=== PATIENT | male | born 1950 | race Caucasian/White ===

== ENCOUNTER 2023-10-01 15:53 | Inpatient (IN) | payer MEDICARE ==
[~2023-10-01] VITALS: Ht 180.3 cm; Wt 104.5 kg
[2023-10-01 16:30] LABS: BASOPHILS % (AUTO) 0.7 % (0-1); EOSINOPHILS # (AUTO) 0.2 X10'3 (0-0.9); EOSINOPHILS % (AUTO) 2.5 % (0-6); HEMATOCRIT 47.4 % (42.0-52.0); HEMOGLOBIN 16.2 g/dl (14.0-17.9); LYMPHOCYTES # (AUTO) 1.3 X10'3 (1.1-4.8); LYMPHOCYTES % (AUTO) 18.3 % (21-51); MEAN CORPUSCULAR HEMOGLOBIN 33.8 PG (27.0-31.0); MEAN CORPUSCULAR HGB CONC 34.1 g/dL (33.0-36.5); MEAN CORPUSCULAR VOLUME 99.1 FL (78-98); MEAN PLATELET VOLUME 7.3 FL (7.4-10.4); MONOCYTES # (AUTO) 0.8 X10'3 (0-0.9); MONOCYTES % (AUTO) 11.5 % (2-12); NEUTROPHILS # (AUTO) 4.7 X10'3 (1.8-7.7); PLATELET COUNT 269 X10'3 (140-440); RED BLOOD COUNT 4.78 X10'6 (4.70-6.10); WHITE BLOOD COUNT 7.1 X10'3 (4.5-11.0)
[2023-10-01 16:35] LABS: APTT 25 SECONDS (22-32); PROTHROMBIN TIME 10.7 SECONDS (9.0-12.0)
[2023-10-01 16:38] LABS: ALANINE AMINOTRANSFERASE 36 U/L (12-78); ALBUMIN 4.4 G/DL (3.4-5.0); ALBUMIN/GLOBULIN RATIO 1.2 (1.1-1.5); ALKALINE PHOSPHATASE 94 IU/L (46-116); ANION GAP 9 (8-16); ASPARTATE AMINO TRANSFERASE 23 U/L (10-37); BILIRUBIN,TOTAL 1.2 MG/DL (0.1-1.0); BLOOD UREA NITROGEN 12 MG/DL (7-18); BUN/CREATININE RATIO 11.9 (10.0-20.0); CALCIUM 9.2 MG/DL (8.5-10.1); CHLORIDE 103 MMOL/L (99-107); CREATININE 1.01 MG/DL (0.60-1.10); GLUCOSE 133 MG/DL (70-104); POTASSIUM 3.5 MMOL/L (3.5-5.1); SODIUM 142 MMOL/L (135-145); TOTAL CARBON DIOXIDE 30.4 MMOL/L (24-32); eCRCL 70 ML/MIN; eGFR 73 ML/MIN
[2023-10-01] MEDS ORDERED: DIAZ5TAB23 PO (16:39)
[2023-10-01] MEDS ORDERED: FLO0.4C PO (16:39)
[2023-10-01] MEDS ORDERED: ATOR80TA PO (16:39)
[2023-10-01] MEDS ORDERED: DUTA0.5C40 PO (16:39)
[2023-10-01] MEDS ORDERED: ZOLP10TA PO (16:39)
[2023-10-01 16:45] LABS: MAGNESIUM 2.1 MG/DL (1.5-2.4); PRO BRAIN NATRIURETIC PEPTIDE < 30 PG/ML (0-125)
[2023-10-01] MEDS ORDERED: iohexol 350MG/ML 100ml bottle IV ONE (17:05)
[2023-10-01 17:22] LABS: D-DIMER 0.45 MG/L FEU (0-0.50)
[2023-10-01] MEDS: aspirin 81mg tab.chew PO ONE (17:25)
[2023-10-01] MEDS: normal saline 1000ml 1,000 ML IV ONE (17:27)
[2023-10-01] MEDS: normal saline 1000ML IV soln IVB ONE (17:28)
[2023-10-01] MEDS: enoxaparin 100mg/ml syringe SUBCUT ONE (18:00)
[2023-10-01] MEDS ORDERED: magnesium 4gm in 100ml NS 100 ML IV PRN (18:05)
[2023-10-01] MEDS ORDERED: acetaminophen 325mg tablet PO PRN ×2 (18:05)
[2023-10-01] MEDS ORDERED: ondansetron/PF 4mg/2ml inj IV PRN (18:05)
[2023-10-01] MEDS ORDERED: mag hydrox/Alum hydrox/simeth 30ml oral suspension PO PRN (18:05)
[2023-10-01] MEDS ORDERED: morphine 2 MG/ML inj. syringe IV PRN ×2 (18:05)
[2023-10-01] MEDS ORDERED: potassium Cl 40MEQ/1/2NS 520ml 520 ML IV PRN (18:05)
[2023-10-01] MEDS ORDERED: magnesium hydroxide 30ml (MOM) UD suspension PO PRN (18:05)
[2023-10-01] MEDS ORDERED: metoprolol tartrate 1mg/ml inj IV PRN (18:05)
[2023-10-01] MEDS ORDERED: potassium Cl 20 mEq SR tablet PO PRN (18:05)
[2023-10-01] MEDS ORDERED: magnesium Cl slow-release 64mg tablet PO PRN (18:05)
[2023-10-01] MEDS ORDERED: nitroGLYCERIN 0.4mg SUBLingual tab SL PRN (18:05)
[2023-10-01] MEDS ORDERED: aminophylline 250mg/10ml inj. IV PRN (18:05)
[2023-10-01] MEDS ORDERED: magnesium 2GM in 50ml NS 50 ML IV PRN (18:05)
[2023-10-01] MEDS ORDERED: ipratropium/albuterol 3ml nebule NEB PRN (18:20)
[2023-10-01] MEDS ORDERED: tamsulosin 0.4mg capsule PO PRN (18:20)
[2023-10-01] MEDS ORDERED: diazepam 5mg tablet PO PRN (18:20)
[2023-10-01 19:11] VITALS: PULSE 64; RESP 13; O2SAT 96
[2023-10-01] MEDS: K and/or MAG REPLACEMENT MC SCH (19:13)
[2023-10-01] MEDS: enoxaparin 40mg/0.4ml syringe SQ SCH (19:20)
[2023-10-01] MEDS: docusate sod 100mg capsule PO SCH (19:23)
[2023-10-01 22:48] LABS: BILIRUBIN,URINE NEGATIVE (Neg); CLARITY,URINE CLEAR (Clear); COLOR,URINE YELLOW (Yellow); GLUCOSE, URINE NEGATIVE (Neg); KETONES,URINE 15 mg/dl (Neg); LEUKOCYTE ESTERASE ,URINE NEGATIVE (Neg); NITRITES, URINE NEGATIVE (Neg); OCCULT BLOOD,URINE NEGATIVE (Neg); PROTEIN,URINE TRACE mg/dl (Neg); UROBILINOGEN,URINE 0.2 E.U/dL (0.2-1.0)
[2023-10-01 22:55] LABS: UA COLLECTION TYPE CLN CATCH MIDSTREAM
[2023-10-01 22:56] LABS: BACTERIA,URINE FEW /HPF (Neg); RBC,URINE NONE SEEN /HPF (0-2); SQUAMOUS EPITHELIAL CELL,UR MODERATE /LPF (FEW); WBC,URINE 0-4 /HPF (0-4)
[2023-10-01 23:00] VITALS: BP 140/83; PULSE 63; RESP 16; TEMP 97.9; O2SAT 96
[2023-10-01] MEDS: zolpidem 5mg tablet PO PRN (23:00)
[2023-10-01 23:01] LABS: URINE AMPHETAMINE SCREEN NEGATIVE (Neg); URINE BARBITUATE SCREEN NEGATIVE (Neg); URINE BENZODIAZEPINES SCREEN POSITIVE (Neg); URINE CANNABINOID SCREEN NEGATIVE (Neg); URINE COCAINE SCREEN NEGATIVE (Neg); URINE METHADONE SCREEN NEGATIVE (Neg); URINE PHENCYCLIDINE SCREEN NEGATIVE (Neg)
[2023-10-02] VITALS (19 sets, daily range): BP systolic 109–162; BP diastolic 61–85; PULSE 55–88; RESP 12–20; TEMP 97–98.7; O2SAT 93–98
[2023-10-02 06:02] LABS: HEMOGLOBIN A1C 5.6 % (4.5-6.2)
[2023-10-02 06:08] LABS: BASOPHILS % (AUTO) 0.6 % (0-1); EOSINOPHILS # (AUTO) 0.2 X10'3 (0-0.9); EOSINOPHILS % (AUTO) 2.3 % (0-6); HEMATOCRIT 41.8 % (42.0-52.0); HEMOGLOBIN 14.4 g/dl (14.0-17.9); LYMPHOCYTES # (AUTO) 1.5 X10'3 (1.1-4.8); LYMPHOCYTES % (AUTO) 19.5 % (21-51); MEAN CORPUSCULAR HEMOGLOBIN 33.8 PG (27.0-31.0); MEAN CORPUSCULAR HGB CONC 34.4 g/dL (33.0-36.5); MEAN CORPUSCULAR VOLUME 98.3 FL (78-98); MEAN PLATELET VOLUME 7.4 FL (7.4-10.4); MONOCYTES % (AUTO) 12.6 % (2-12); PLATELET COUNT 237 X10'3 (140-440); RED BLOOD COUNT 4.25 X10'6 (4.70-6.10); RED CELL DISTRIBUTION WIDTH 14.1 % (11.5-14.5); WHITE BLOOD COUNT 7.6 X10'3 (4.5-11.0)
[2023-10-02 06:12] LABS: APTT 26 SECONDS (22-32); PROTHROMBIN TIME 10.9 SECONDS (9.0-12.0)
[2023-10-02 06:31] LABS: ALANINE AMINOTRANSFERASE 29 U/L (12-78); ALBUMIN 3.7 G/DL (3.4-5.0); ALBUMIN/GLOBULIN RATIO 1.2 (1.1-1.5); ALKALINE PHOSPHATASE 76 IU/L (46-116); ANION GAP 9 (8-16); ASPARTATE AMINO TRANSFERASE 19 U/L (10-37); BILIRUBIN,TOTAL 0.8 MG/DL (0.1-1.0); BLOOD UREA NITROGEN 11 MG/DL (7-18); BUN/CREATININE RATIO 14.1 (10.0-20.0); CHLORIDE 104 MMOL/L (99-107); CHOL/HDL RATIO 4.7 (0.00-4.99); CHOLESTEROL 179 MG/DL (0-200); CREATININE 0.78 MG/DL (0.60-1.10); GLUCOSE 100 MG/DL (70-104); HDL CHOLESTEROL 38 MG/DL (35-60); LDL CHOLESTEROL 123 MG/DL (50-100); MAGNESIUM 2.1 MG/DL (1.5-2.4); POTASSIUM 3.2 MMOL/L (3.5-5.1); SODIUM 138 MMOL/L (135-145); TOTAL PROTEIN 6.9 G/DL (6.4-8.2); TRIGLYCERIDES 164 MG/DL (20-135); eCRCL 91 ML/MIN; eGFR > 90 ML/MIN
[2023-10-02] MEDS: dutasteride 0.5 MG capsule PO SCH (07:41)
[2023-10-02] MEDS: atorvastatin 20mg tablet PO SCH (07:41)
[2023-10-02] MEDS: potassium Cl 20 mEq SR tablet PO PRN (07:41)
[2023-10-02] MEDS: regadenoson 0.4mg/5ml syringe IV PRN (09:54)
[2023-10-02] MEDS: metoprolol succinate 25mg (24-HOUR) SR. Tablet PO SCH (12:44)
[2023-10-02] MEDS: aspirin 81mg, enteric-coated 1 TAB TABLET.DR PO SCH (12:50)
[2023-10-02] MEDS ORDERED: albuterol 2.5 MG/3 ML nebule NEB PRN (13:30)
[2023-10-02] MEDS: normal saline 1000ml 1,000 ML IV SCH (16:05)
[2023-10-02] MEDS: pantoprazole 40mg Tablet.DR PO SCH (18:01)
[2023-10-03 02:00] VITALS: BP 117/47; PULSE 60; RESP 20; TEMP 98.3; O2SAT 97
[2023-10-03 05:59] LABS: BASOPHILS # (AUTO) 0.1 X10'3 (0-0.2); EOSINOPHILS # (AUTO) 0.2 X10'3 (0-0.9); EOSINOPHILS % (AUTO) 3.4 % (0-6); HEMATOCRIT 40.9 % (42.0-52.0); HEMOGLOBIN 14.3 g/dl (14.0-17.9); LYMPHOCYTES # (AUTO) 1.4 X10'3 (1.1-4.8); LYMPHOCYTES % (AUTO) 21.6 % (21-51); MEAN CORPUSCULAR HEMOGLOBIN 34.3 PG (27.0-31.0); MEAN PLATELET VOLUME 7.2 FL (7.4-10.4); MONOCYTES # (AUTO) 0.8 X10'3 (0-0.9); MONOCYTES % (AUTO) 12.6 % (2-12); NEUTROPHILS # (AUTO) 4.1 X10'3 (1.8-7.7); NEUTROPHILS % (AUTO) 61.4 % (42-75); PLATELET COUNT 228 X10'3 (140-440); RED BLOOD COUNT 4.18 X10'6 (4.70-6.10); RED CELL DISTRIBUTION WIDTH 14.1 % (11.5-14.5); WHITE BLOOD COUNT 6.7 X10'3 (4.5-11.0)
[2023-10-03 06:00] VITALS: BP 125/62; PULSE 70; RESP 18; TEMP 98.7; O2SAT 96
[2023-10-03 06:10] LABS: APTT 28 SECONDS (22-32); INR 1.1 INR; PROTHROMBIN TIME 11.3 SECONDS (9.0-12.0)
[2023-10-03 06:14] LABS: ALANINE AMINOTRANSFERASE 29 U/L (12-78); ALBUMIN 3.7 G/DL (3.4-5.0); ALBUMIN/GLOBULIN RATIO 1.2 (1.1-1.5); ALKALINE PHOSPHATASE 71 IU/L (46-116); ANION GAP 11 (8-16); ASPARTATE AMINO TRANSFERASE 19 U/L (10-37); BILIRUBIN,TOTAL 0.9 MG/DL (0.1-1.0); BLOOD UREA NITROGEN 8 MG/DL (7-18); BUN/CREATININE RATIO 9.6 (10.0-20.0); CALCIUM 8.8 MG/DL (8.5-10.1); CHLORIDE 107 MMOL/L (99-107); CREATININE 0.83 MG/DL (0.60-1.10); GLUCOSE 100 MG/DL (70-104); MAGNESIUM 1.9 MG/DL (1.5-2.4); PHOSPHORUS 4.2 MG/DL (2.3-4.5); POTASSIUM 3.7 MMOL/L (3.5-5.1); SODIUM 140 MMOL/L (135-145); TOTAL CARBON DIOXIDE 21.8 MMOL/L (24-32); TOTAL PROTEIN 6.8 G/DL (6.4-8.2); eCRCL 86 ML/MIN; eGFR > 90 ML/MIN
[2023-10-03] MEDS ORDERED: ALBU2.5V7 NEB (07:10)
[2023-10-03] MEDS ORDERED: ASPI-1071 PO (07:10)
[2023-10-03] MEDS ORDERED: METO-395 PO (07:10)
[2023-10-03 08:00] VITALS: RESP 18; O2SAT 96
[2023-10-03] MEDS ORDERED: ATR0.5NEB IH (08:25)
[2023-10-03 12:03] VITALS: BP 96/52; PULSE 85; RESP 16; TEMP 98.3; O2SAT 93
[2023-10-03 13:00] VITALS: BP 96/52; PULSE 85; RESP 16; TEMP 98.3; O2SAT 93
== END 2023-10-03 12:48 | disposition home or self-care (01) | DRG 311 ==
LOC: ER 15:54 → ED HOLD 18:06 → PCU 3S 22:35
PROVIDERS: ADMIT Internal Medicine; ATTEND Internal Medicine
PROC: B32T1ZZ Computerized Tomography (CT Scan) of Left Pulmonary Artery using Low Osmolar Contrast (ICD-10-PCS; 2023-10-01)
PROC: B3201ZZ Computerized Tomography (CT Scan) of Thoracic Aorta using Low Osmolar Contrast (ICD-10-PCS; 2023-10-01)
PROC: B32S1ZZ Computerized Tomography (CT Scan) of Right Pulmonary Artery using Low Osmolar Contrast (ICD-10-PCS; 2023-10-01)
PROC: 4A02XM4 Measurement of Cardiac Total Activity, External Approach (ICD-10-PCS; principal; 2023-10-02)
PROC: 3E033HZ Introduction of Radioactive Substance into Peripheral Vein, Percutaneous Approach (ICD-10-PCS; 2023-10-02)
DX: I20.0 Unstable angina (principal); N40.0 Benign prostatic hyperplasia without lower urinary tract symptoms; I25.9 Chronic ischemic heart disease, unspecified; E78.00 Pure hypercholesterolemia, unspecified; F19.10 Other psychoactive substance abuse, uncomplicated; J44.9 Chronic obstructive pulmonary disease, unspecified; Z79.899 Other long term (current) drug therapy; Z90.49 Acquired absence of other specified parts of digestive tract
CPT/HCPCS: 36415; 71045; 71275; 78452; 80053; 80061; 80305; 81001; 83036; 83735; 83880; 84100; 84484; 85025; 85379; 85610; 85730; 87081; 93005; 93017; 93306; 94640; 94760; 96360; 99285; A9500; G0378; J1650; J2785; J3490; J7030; J7040; Q9967